=== PATIENT | male | born 1945 | race Caucasian/White ===

== ENCOUNTER 2021-12-01 09:51 | Emergency (ER) | payer MEDICARE, BC ==
[2021-12-01] MEDS ORDERED: ONDANSETRON 4 MG/2 ML VIAL IVP STA (10:26)
[2021-12-01] MEDS ORDERED: SODIUM CHLORIDE 0.9% 1,000 ML IV STA (10:26)
[2021-12-01] MEDS ORDERED: MORPHINE 2 MG/ML CARPUJECT IVP STA (10:26)
[2021-12-01 10:30] LABS: BASOPHILS # (AUTO) 0.1 10^3/uL (0.0-0.1); BASOPHILS % (AUTO) 1.1 %; EOSINOPHILS # (AUTO) 0.1 10^3/uL (0.0-0.7); EOSINOPHILS % (AUTO) 1.4 %; HGB - HEMOGLOBIN 13.7 g/dL (14.0-18.0); LYMPHOCYTES # (AUTO) 0.6 10^3/uL (1.5-3.5); LYMPHOCYTES % (AUTO) 9.9 %; MEAN CORPUSCULAR HEMOGLOBIN 30.4 pg (27.0-31.0); MEAN CORPUSCULAR HGB CONC 32.6 g/dL (32.0-36.0); MEAN CORPUSCULAR VOLUME 93.1 fL (80.0-94.0); MEAN PLATELET VOLUME 12.1 fL (7.4-11.4); MONOCYTES # (AUTO) 1.1 10^3/uL (0.0-1.0); MONOCYTES % (AUTO) 16.4 %; NEUTROPHILS # (AUTO) 4.5 10^3/uL (1.5-6.6); PLT - PLATELET COUNT 129 10^3/uL (130-450); RED BLOOD COUNT 4.51 10^6/uL (4.70-6.10); RED CELL DISTRIBUTION WIDTH 14.8 % (12.0-15.0); WHITE BLOOD COUNT 6.5 x10^3/uL (4.8-10.8)
--- NOTE | 2021-12-01 10:30 | ED Physician Documentation ---
History of Present Illness - Stated complaint Stated Complaint: LOWER BACK/SIDE PX - Chief complaint Chief Complaint: Back Pain - Additonal information Additional information: Patient is a 76-year-old male presenting to the emergency department with right- sided flank pain. Reports 5 days significant right-sided flank pain worse at night. Reports history of chronic back pain and history of lumbar spinal fusion surgery in the past. States that this pain is different. Does report that he is currently traveling [place] country and has been sleeping in different mattresses even every evening. Review of Systems Ten Systems: 10 systems reviewed and negative Constitutional: denies: Fever Eyes: denies: Loss of vision Ears: denies: Loss of hearing Nose: denies: Rhinorrhea / runny nose Throat: denies: Dental pain / toothache Cardiac: denies: Chest pain / pressure Respiratory: denies: Dyspnea GI: reports: Abdominal Pain Musculoskeletal: reports: Back pain PD PAST MEDICAL HISTORY - Present Medications Home Medications: Ambulatory Orders Medication Instructions Recorded Confirmed Ibuprofen [Motrin] 800 mg PO Q8H PRN #30 tablet 12/01/21 oxyCODONE [Roxicodone] 5 mg PO ONCE #10 tablet 12/01/21 - Allergies Allergies/Adverse Reactions: Allergies Allergy/AdvReac Type Severity Reaction Status Date / Time acetaminophen [From Tylenol] Allergy Emesis Verified 12/01/21 10:03 PD ED PE NORMAL - Vitals Vital signs reviewed: Yes - General General: Alert and oriented X 3 - HEENT HEENT: Atraumatic - Neck Neck: Supple, no meningeal sign - Cardiac Cardiac: RRR - Respiratory Respiratory: No respiratory distress - Abdomen Abdomen: Normal bowel sounds, Soft, Non tender, Non distended, No organomegaly - Back Back: No CVA TTP, No spinal TTP - Extremities Extremities: No deformity - Neuro Neuro: Alert and oriented X 3, No motor deficit, No sensory deficit Results - Vitals Vitals: Vital Signs - 24 hr 12/01/21 12/01/21 12/01/21 09:59 10:47 12:21 Temperature 36.6 C Heart Rate 78 67 68 Respiratory 18 16 16 Rate Blood Pressure 141/115 H 151/68 H 148/82 H O2 Saturation 99 97 100 12/01/21 14:04 Temperature Heart Rate 67 Respiratory 16 Rate Blood Pressure 160/85 H O2 Saturation 98 Oxygen O2 Source Room air - Labs Labs: Laboratory Tests 12/01/21 12/01/21 12/01/21 10:12 10:20 10:20 WBC 6.5 RBC 4.51 L Hgb 13.7 L Hct 42.0 MCV 93.1 MCH 30.4 MCHC 32.6 RDW 14.8 Plt Count 129 L MPV 12.1 H Neut # (Auto) 4.5 Lymph # (Auto) 0.6 L Carbon # (Auto) 1.1 H Eos # (Auto) 0.1 Baso # (Auto) 0.1 Absolute Nucleated RBC 0.00 Nucleated RBC % 0.0 Sodium 140 Potassium 3.9 Chloride 101 Carbon Dioxide 29 Anion Gap 10.0 BUN 24 H Creatinine 1.0 Estimated GFR (MDRD) 73 L Glucose 157 H Calcium 9.7 Total Bilirubin 1.4 H AST 17 ALT 15 Alkaline Phosphatase 53 Total Protein 7.7 Albumin 4.5 Globulin 3.2 Albumin/Globulin Ratio 1.4 Lipase 57 H Urine Color YELLOW Urine Clarity CLEAR Urine pH 6.0 Ur Specific [place] 1.020 Urine Protein NEGATIVE Urine Glucose (UA) NEGATIVE Urine Ketones TRACE Urine Occult Blood NEGATIVE Urine Nitrite NEGATIVE Urine Bilirubin NEGATIVE Urine Urobilinogen 0.2 (NORMAL) Ur Leukocyte Esterase NEGATIVE Ur Microscopic Review NOT INDICATED Urine Culture Comments NOT INDICATED PD MEDICAL DECISION MAKING - ED course Complexity details: reviewed results, d/w patient ED course: Patient is 76-year-old male with known history of chronic back pain presenting to the emergency department with right-sided flank pain. Afebrile, hemoglobin stable on arrival to the emergency department. Abdominal exam benign. Some tenderness to the paraspinal muscles in his right low back. Labs obtained within normal limits are nonactionable. Urine analysis negative for indications of infection or significant hematuria. CT of the abdomen pelvis was nonacute. Patient was given medication for symptomatic management. Will dischargeWith medications for symptomatic management.Encourage careful follow-up with primary care and to return to the emergency department for new or worsening symptoms. Departure - Departure Disposition: 01 Home, Self Care Clinical Impression: Back pain Prescriptions: Ibuprofen [Motrin] 800 mg PO Q8H PRN #30 tablet PRN Reason: PAIN &/OR FEVER oxyCODONE [Roxicodone] 5 mg PO ONCE #10 tablet Comments: Thank you for allowing us to care for you today at [facility]. Like to thank again for your patience with us here in the emergency room. We have been experiencing extremely high patient volumes and that has unfortunately resulted in some delays in care. All the testing performed in the emergency department today including your lab work and a CT scan of your abdomen pelvis were all very reassuring. I believe the most likely etiology for your back pain is low back strain. I believe this is may be exacerbated particularly since you are currently traveling and sleeping in unfamiliar mattresses. I will be discharging with medication you can take for pain control. I recommend regular Motrin as well as the use of Lidoderm patches as needed. Also be discharging with a small number of a stronger medication you can take for pain. 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 Please do follow-up with your primary care doctor when you are able. If it anytime you develop any new or worsening symptoms please not hesitate to return. Discharge Date/Time: 12/01/21 15:11
[2021-12-01 10:39] LABS: ALBUMIN 4.5 g/dL (3.2-5.5); ALBUMIN/GLOBULIN RATIO 1.4 (1.0-2.2); BILIRUBIN,TOTAL 1.4 mg/dL (0.2-1.0); CALCIUM 9.7 mg/dL (8.5-10.3); POTASSIUM 3.9 mmol/L (3.5-5.0); TOTAL PROTEIN 7.7 g/dL (6.7-8.2)
[2021-12-01 11:07] LABS: BILIRUBIN,URINE NEGATIVE (NEGATIVE); GLUCOSE, URINE (UA) NEGATIVE (NEGATIVE); KETONES,URINE (UA) TRACE mg/dL (NEGATIVE); LEUKOCYTE ESTERASE, URINE NEGATIVE (NEGATIVE); NITRITE,URINE NEGATIVE (NEGATIVE); OCCULT BLOOD,URINE NEGATIVE (NEGATIVE); PROTEIN,URINE NEGATIVE (NEGATIVE); UROBILINOGEN,URINE 0.2 (NORMAL) E.U./dL (NORMAL)
[2021-12-01 11:12] LABS: CLARITY,URINE CLEAR (CLEAR)
--- NOTE | 2021-12-01 13:30 | CT Report ---
PROCEDURE: Abdomen/Pelvis WO INDICATIONS: right flank pain, hx of stones TECHNIQUE: Noncontrast 5 mm thick sections acquired from the diaphragms to the symphysis. 5 mm coronal and sagi ttal reformats were then performed. For radiation dose reduction, the following was used: automated exposure control, adjustment of mA and/or kV according to patient size. COMPARISON: None. FINDINGS: Image quality: Excellent. ABDOMEN: Lung bases: Lung bases are clear. Heart size is normal. Solid organs: Liver is enlarged measuring 20.6 cm. And has normal in size. Gallbladder is unremarka ble Pancreas is normal in contours. No adrenal nodules. Kidneys are minimally atrophic and size, w ithout hydronephrosis or nephrolithiasis. Simple right renal cysts are noted. There is appearance of low-attenuation prominence within the renal pelvis suggestive of parapelvic cysts. Peritoneum and bowel: Unenhanced bowel loops demonstrate normal wall thickness and caliber. No free fluid or air. Appendix is normal. Moderate colonic stool is present. Nodes and vessels: No retroperitoneal or mesenteric adenopathy by size criteria. Aorta and inferior vena cava are normal in caliber. Miscellaneous: No ventral hernias. PELVIS: Genitourinary: Bladder wall thickness is normal. Miscellaneous: No inguinal hernias or adenopathy. Bones: There is deformity of the posterior right iliac bone suggestive of prior surgical intervention . Recommend clinical correlation. Lower lumbar posterior fusion is present. No vertebral body mel diann fractures. Rightward scoliotic curvature is present. IMPRESSION: No visualized renal or ureteral calculi. Left renal parapelvic cysts. Appendix is normal. Moderate colonic stool. No obstruction. Reviewed by: Chiquis Purdy MD on 12/01/2021 1:29 PM PDT Approved by: Chiquis Purdy MD on 12/01/2021 1:29 PM PDT Station ID: [id number]
[2021-12-01 14:05] VITALS: BP 160/85
== END 2021-12-01 15:11 | disposition home or self-care (01) ==
LOC: ED 09:51
DX: M54.50 Low back pain, unspecified (principal)
CPT/HCPCS: 36415; 80053; 81001; 81003; 83690; 85025; 87086; 96374; 99282